=== PATIENT | female | born 1945 | race Caucasian/White ===

== ENCOUNTER 2017-12-17 22:58 | Emergency (ER) | payer MEDICARE, SELFPAY ==
[2017-12-17 23:02] VITALS: BP 147/66; PULSE 61; RESP 18; TEMP 37.4; O2SAT 93; BMI 24.7
--- NOTE | 2017-12-18 00:50 | DI.RAD.S_ITS ---
PROCEDURE: XR TOE RT MIN 2V INDICATIONS: pain swelling TECHNIQUE: 3 views of the right toe(s) acquired. COMPARISON: None. FINDINGS: Bones: No fractures or dislocations. No suspicious bony lesions. Soft tissues: No suspicious soft tissue densities. There is second toe swelling. IMPRESSION: No fracture identified. If patient's pain/symptoms do not improve consider followup radiographs in 10 days to assess for occult fracture Dictated by: Brodie Zee M.D. on 12/18/2017 at 7:14 Approved by: Brodie Zee M.D. on 12/18/2017 at 7:16
--- NOTE | 2017-12-18 00:50 | DI.RAD.S_ITS ---
PROCEDURE: XR RIBS LT MIN 3V W CXR1V INDICATIONS: pain fall TECHNIQUE: 2 views of the left ribs were acquired, along with a single view chest. COMPARISON: None. FINDINGS: Surgical changes and devices: Sternotomy wires Bones and chest wall: There are multiple left rib fractures although some of these demonstrate callus formation suggesting chronic age. No suspicious bony lesions. Overlying soft tissues appear unremarkable. Lungs and pleura: No pleural effusions or pneumothorax. Lungs appear clear. Mediastinum: Mediastinal contours appear normal. Heart size is normal. IMPRESSION: Multiple left rib fractures (left rib 10-12) although some of these demonstrate possible subacute or chronic appearance although cannot exclude acute 12th rib fracture. Therefore recommend clinical correlation to point tenderness. Dictated by: Brodie Zee M.D. on 12/18/2017 at 7:11 Approved by: Brodie Zee M.D. on 12/18/2017 at 7:14
[2017-12-18] MEDS: HYDROCODONE/ACET 5/325 TABLET 1 TAB PO (01:01)
[2017-12-18] MEDS: CYCLOBENZAPRINE 5 MG TABLET PO (01:02)
--- NOTE | 2017-12-18 01:32 | ED.BACK ---
HPI - Back Pain/Injury General Chief Complaint: Back Pain/Injury Stated Complaint: BACK IS SPASMING HORRIBLY Time Seen by Provider: 12/18/17 00:43 Source: patient Mode of arrival: ambulatory Limitations: no limitations History of Present Illness HPI Narrative: Patient is a 72-year-old female who presents with left-sided back spasm pain right foot pain and left hand pain. She fell about a week ago she has been having back spasms ever since and hurts. She was actually seen evaluated at [facility] yesterday she is having quite a severe headache after the fall as well and she is on Coumadin. The did not give her any medications. She took her 's Shoshoni prior to arrival which she said only helped some. She definitely has spasms in her back that carrier round she has no numbness or tingling no chest pain. Her right toe is also hurting. MD Complaint: fall Related Data Home Medications Medication Instructions Recorded Confirmed atenolol 75 mg PO QPM #0 08/24/16 fluoxetine 20 mg PO QDAY #0 08/24/16 gabapentin 100 mg PO QPM #0 08/24/16 isosorbide mononitrate 20 mg PO QDAY #0 08/24/16 warfarin [Coumadin] 2.5 mg PO QDAY #0 08/24/16 [HAIR,SKIN,NAILS] 1 cap PO QDAY #0 01/23/17 [MEGARED KRILL OIL] 500 mg PO QDAY #0 01/23/17 [PROBIOTIC 10] PO QPM #0 01/23/17 atorvastatin [Lipitor] 20 mg PO HS #0 01/23/17 cholecalciferol (vitamin D3) 2,000 unit PO QDAY #0 01/23/17 [Vitamin D3] cyanocobalamin (vitamin B-12) 1,000 mcg PO QDAY #0 01/23/17 losartan 100 mg PO QPM #0 01/23/17 omeprazole 20 mg PO EVERY OTHER DAY #0 01/23/17 sennosides [senna] 8.6 mg PO QPM #0 01/23/17 Previous Rx's Medication Instructions Recorded cephalexin [Keflex] 500 mg PO TID #21 cap 01/23/17 prednisone 40 mg PO Q DAY 5 Days #0 tab 01/23/17 cyclobenzaprine 5 mg PO TID PRN #10 tab 12/18/17 hydrocodone-acetaminophen 1 tab PO Q6H PRN #10 tab 12/18/17 Allergies Allergy/AdvReac Type Severity Reaction Status Date / Time nitrofurantoin Allergy Intermediate rash, Verified 12/17/17 23:08 [From MACRODANTIN] itching lisinopril [LISINOPRIL] AdvReac Intermediate cough Verified 12/17/17 23:08 Review of Systems Review of Systems All systems reviewed & are unremarkable except as noted in HPI and below Constitutional Denies chills, Denies fever(s), Denies lethargy and Denies weakness Cardiovascular Denies chest pain, Denies irregular heart rhythm, Denies lightheadedness, Denies palpitations, Denies dyspnea, Denies dyspnea on exertion and Denies orthopnea Respiratory Denies cough, Denies dyspnea, Denies dyspnea on exertion and Denies wheezing Gastrointestinal Gastrointestinal: Denies abdominal pain, Denies change in bowel habits, Denies diarrhea, Denies nausea and Denies vomiting Musculoskeletal Reports as per HPI, Reports back pain, Denies muscle weakness, Denies numbness and Denies tingling Integumentary/Breasts Denies pruritus, Denies erythema, Denies rash and Denies wounds Neurologic Denies numbness, Denies tingling and Denies weakness Endocrine Denies palpitations Allergic/Immunologic Denies wheezing PFSH Medical History Atrial fibrillation (Acute) Fibromyalgia (Acute) Multiple sclerosis (Acute) Social History Smoking Status: Never smoker Exam Initial Vital Signs Initial Vital Signs: Vital Signs Temperature 99.4 F 12/17/17 23:02 Pulse Rate 61 12/17/17 23:02 Respiratory Rate 18 12/17/17 23:02 Blood Pressure 147/66 H 12/17/17 23:02 Pulse Oximetry 93 12/17/17 23:02 GENERAL: Alert elderly female in no acute distress HEENT: Head atraumatic,EOMI, pupils reactive, face symmetric CARDIOVASCULAR: Regular rate and rhythm without murmurs, rubs or gallops. RESPIRATORY: Breath sounds equal bilaterally, no wheezes rales or rhonchi. Left rib slightly tender to touch but paradoxical movement no sign of trauma ABDOMEN: Soft, nontender. Normoactive bowel sounds all 4 quadrants. No guarding or rebound. EXTREMITIES: Normal range of motion, no clubbing or edema. Neurovascularly intact BACK: No vertebral tenderness no step-offs she is tender all left thoracic area NEUROLOGICAL: Alert and oriented x4.Normal gait and speech. Cranial nerves II through XII grossly intact. SKIN: Right 2nd toe is slightly erythematous no significant streaking no gross pus Course Orders Ordered: ED Orders 12/18/17 00:50 XR ribs LT min 3V w CXR1V Stat XR toe RT min 2V Stat Discontinued Medications Hydrocodone Bitart/Acetaminophen (Shoshoni 5/325) 1 tab PO NOW ONE Stop: 12/18/17 00:51 Last Admin: 12/18/17 01:01 Dose: 1 tab Cyclobenzaprine HCl (Flexeril) 5 mg PO NOW ONE Stop: 12/18/17 00:51 Last Admin: 12/18/17 01:02 Dose: 5 mg Vital Signs - 8 hr 12/17/17 23:02 12/18/17 02:25 Temperature 99.4 F 98.6 F Pulse Rate 61 58 L Respiratory Rate 18 17 Blood Pressure 147/66 H 146/51 H Pulse Oximetry 93 94 MDM - Back Pain/Injury Imaging Data Rib x-ray:: Attestation: I personally reviewed and interpreted this imaging study as follows: My impression: Possible 12th rib fracture no significant displacement no pneumothorax Right toe x-ray: Attestation: I personally reviewed and interpreted this imaging study as follows: My impression: No fracture ECG Data Attestation: I personally reviewed and interpreted this ECG as follows: Prior ECG tracings: not available for review Interpretation: Normal sinus rhythm rate [address] changes normal intervals MDM Narrative Medical decision making narrative: Patient pain is much better after Shoshoni and Flexeril. Pain is likely from her rib fracture. Foot and wrist seem to be sprained at this time. possible infection of the toe however his monitor closely. I discussed all findings with the patient and spouse, Education has been performed regarding treatment plan, diagnosis, warning signs and symptoms and all concerns have been addressed. Verbally agree with and understood all of the above. Discharge Plan Departure Patient Disposition: Home Clinical Impression: Left rib fracture Discharge Date/Time: 12/18/17 02:27 Interventions: ED Discharge Assessment Last Done: 12/18/17 02:25 Instructions: DI for Rib Fracture Activity Restrictions/Additional Instructions: *You have been diagnosed with left rib fracture *What to do: Take 4-6 weeks to heal, increase activity as tolerated, recommend physical therapy as needed, heating pad *Continue to take medications as directed Flexeril take only if needed for muscle spasm Shoshoni 1 tablet every 6 hr if needed for severe pain *Follow up with your primary care provider in 2-3 days *Return to ER if you should have increasing pain, shortness of breath, worsening redness or swelling on foot or any new, worsening or concerning symptoms Prescriptions: New hydrocodone-acetaminophen 5-325 mg tablet 1 tab PO Q6H PRN (Reason: pain) Qty: 10 RF: 0 cyclobenzaprine 5 mg tablet 5 mg PO TID PRN (Reason: muscle spasm) Qty: 10 RF: 0 No Action atenolol 25 MG tablet 75 mg PO QPM Qty: 0 RF: 0 fluoxetine 40 MG capsule 20 mg PO QDAY Qty: 0 RF: 0 warfarin [Coumadin] 2.5 MG tablet 2.5 mg PO QDAY Qty: 0 RF: 0 isosorbide mononitrate 20 MG tablet 20 mg PO QDAY Qty: 0 RF: 0 gabapentin 100 MG capsule 100 mg PO QPM Qty: 0 RF: 0 atorvastatin [Lipitor] 20 MG tablet 20 mg PO HS Qty: 0 RF: 0 omeprazole 20 MG capsule,delayed release(DR/EC) 20 mg PO EVERY OTHER DAY Qty: 0 RF: 0 losartan 100 MG tablet 100 mg PO QPM Qty: 0 RF: 0 [HAIR,SKIN,NAILS] 1 cap PO QDAY Qty: 0 RF: 0 [MEGARED KRILL OIL] 500 mg PO QDAY Qty: 0 RF: 0 cyanocobalamin (vitamin B-12) 1,000 MCG tablet extended release 1,000 mcg PO QDAY Qty: 0 RF: 0 cholecalciferol (vitamin D3) [Vitamin D3] 2,000 UNIT capsule 2,000 unit PO QDAY Qty: 0 RF: 0 sennosides [senna] 8.6 MG tablet 8.6 mg PO QPM Qty: 0 RF: 0 [PROBIOTIC 10] PO QPM Qty: 0 RF: 0 cephalexin [Keflex] 500 MG capsule 500 mg PO TID Qty: 21 RF: 0 prednisone 20 MG tablet 40 mg PO Q DAY 5 Days Qty: 0 RF: 0
[2017-12-18 02:25] VITALS: BP 146/51; PULSE 58; RESP 17; TEMP 37; O2SAT 94
== END 2017-12-18 02:27 | disposition home or self-care (01) ==
PROVIDERS: Emergency Provider Emergency Medicine; PCP Family Medicine
DX: S22.32XA Fracture of one rib, left side, initial encounter for closed fracture (principal); W19.XXXA Unspecified fall, initial encounter; Z79.01 Long term (current) use of anticoagulants; Z86.79 Personal history of other diseases of the circulatory system
CPT/HCPCS: 71101; 73660; 93005; 99282; 99284

== ENCOUNTER → 2020-07-06 12:51 | Outpatient (CLI) | payer MEDICARE, OTHER, SELFPAY ==
--- NOTE | 2020-07-06 | DI.MRI.S_ITS ---
PROCEDURE: MR THORACIC SPINE WO/W CON INDICATIONS: Multiple sclerosis TECHNIQUE: Noncontrast sagittal T1 spin echo and T2 fast spin echo, sagittal STIR, axial T1 and T2 fast spin echo through the thoracic spine. After the administration of contrast, axial and sagittal T1 spin echo with fat saturation through the thoracic spine. COMPARISON: [facility], MR, MR HEAD/BRAIN WO/W CON, 07/06/2020, 13:30. [facility], MR, MR LUMBAR SPINE WO/W CON, 07/06/2020, 13:30. [facility], MR, MR CERVICAL SPINE WO/W CON, 07/06/2020, 13:30. FINDINGS: Image quality: Motion is present on multiple sequences, limiting areas of fine detail evaluation.. Alignment and curvature: There is normal bony alignment. Marrow: Marrow is of normal overall signal. No acute vertebral body compression fractures. Spinal cord: Visualized spinal cord is of normal signal and size, without abnormal enhancement. Paraspinous soft tissues: No paravertebral masses or abnormal enhancement. Miscellaneous: Central canal and foramina appear widely patent at all scanned levels. Multilevel disc desiccation is present. Minimal disc bulges present at T5-6, T8-9 and T11-12. IMPRESSION: 1. Minimal multilevel degenerative changes as above. Dictated by: Sharron Butterfield M.D. on 07/06/2020 at 16:39 Approved by: Sharron Butterfield M.D. on 07/06/2020 at 16:41
--- NOTE | 2020-07-06 | DI.MRI.S_ITS ---
PROCEDURE: MR HEAD/BRAIN WO/W CON INDICATIONS: Multiple sclerosis TECHNIQUE: Noncontrast sagittal and axial FLAIR, axial and coronal T2 fast spin echo, axial VIBE, axial gradient echo, axial diffusion and ADC through the brain. After the administration of contrast, axial and coronal VIBE with fat saturation through the brain. COMPARISON: [facility], MR, MR CERVICAL SPINE WO/W CON, 07/06/2020, 13:30. FINDINGS: Image quality: Excellent. The ventricular system and cortical sulci demonstrate atrophy, consistent for the patient's stated age. There are extensive areas of increased T2/FLAIR signal intensity within the periventricular and subcortical white matter. No distinct corpus callosum lesions are identified. There is no acute intra-or extra axial fluid collection. No acute hemorrhage, mass lesion or midline shift. Brainstem is unremarkable. 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 There are no areas of restricted diffusion. Globes are symmetrical. Sinuses are aerated. Osseous structures are intact. IMPRESSION: 1. No acute intracranial process. 2. Moderate to severe atrophy and chronic microvascular ischemic changes. 3. Extensive hyperintensities within the periventricular and subcortical white matter without corpus callosum lesions. Appearance can be consistent with chronic microvascular ischemia and/or presence of demyelinating disease. Dictated by: Sharron Butterfield M.D. on 07/06/2020 at 15:52 Approved by: Sharron Butterfield M.D. on 07/06/2020 at 15:56
--- NOTE | 2020-07-06 | DI.MRI.S_ITS ---
PROCEDURE: MR LUMBAR SPINE WO/W CON INDICATIONS: Multiple sclerosis TECHNIQUE: Noncontrast sagittal T1 spin echo and T2 fast spin echo, sagittal STIR, axial T1 and T2 fast spin echo through the lumbar spine. In cases with scoliosis, additional coronal T2 fast spin echo may be performed. After the administration of contrast, sagittal and axial T1 spin echo with fat saturation through the lumbar spine. COMPARISON: None. FINDINGS: Image quality: Motion is present on multiple sequences, limiting areas of fine detail evaluation. Alignment and curvature: There is normal bony alignment. Marrow: Marrow is of normal overall signal. No acute vertebral body compression fractures. No suspicious marrow enhancement. Spinal cord: Conus medullaris terminates at the L1 level. Visualized spinal cord demonstrates normal signal, without suspicious enhancement. There is overall decreased caliber of the spinal cord. Paraspinous soft tissues: No paravertebral masses or abnormal enhancement. Discs: Multilevel [id number] disc desiccation is present. L1-L2: Mild disc bulge with mild spinal stenosis. No foraminal narrowing. Facet and ligamentum flavum hypertrophy are present. L2-L3: Mild disc bulge with severe spinal stenosis and canal compression. Minimal to mild bilateral foraminal narrowing with facet and ligamentum flavum hypertrophy. L3-L4: Mild disc bulge with moderate to severe spinal stenosis. Moderate to severe bilateral foraminal narrowing with facet and ligamentum flavum hypertrophy. L4-L5: Mild disc bulge with severe spinal stenosis and canal compression. Moderate to severe bilateral foraminal narrowing with facet and ligamentum flavum hypertrophy. L5-S1: Mild disc bulge with mild spinal stenosis. No foraminal narrowing. Facet and ligamentum flavum hypertrophy are present. IMPRESSION: 1. Significant multilevel degenerative changes. 2. Multilevel spinal stenosis secondary to disc bulge with contributing effect of congenital stenosis, as well as facet/ligamentum flavum arthropathy. It is most severe at L2-3 and L4-5. 3. Multilevel foraminal narrowing most severe at L3-4 and L4-5 secondary to facet arthropathy. Dictated by: Sharron Butterfield M.D. on 07/06/2020 at 16:35 Approved by: Sharron Butterfield M.D. on 07/06/2020 at 16:38
--- NOTE | 2020-07-06 | DI.MRI.S_ITS ---
PROCEDURE: MR CERVICAL SPINE WO/W CON INDICATIONS: Multiple sclerosis TECHNIQUE: Noncontrast sagittal T1 spin echo and T2 fast spin echo, sagittal STIR, sagittal PD fast spin echo, foraminal oblique sagittal T2 fast spin echo, axial gradient echo or T2 fast spin echo through the cervical spine. After the administration of contrast, sagittal and axial T1 spin echo with fat saturation through the cervical spine. COMPARISON: [facility], MR, MR LUMBAR SPINE WO/W CON, 07/06/2020, 13:30. [facility], MR, MR THORACIC SPINE WO/W CON, 07/06/2020, 13:30. [facility], MR, MR HEAD/BRAIN WO/W CON, 07/06/2020, 13:30. MRI cervical spine 07/25/2018 FINDINGS: Image quality: Excellent. Alignment and curvature: There is an overall appearance of cervical straightening. There is grade 1 retrolisthesis of C5 on C6, C6 on C7. Marrow: Marrow demonstrates normal overall signal. Spinal cord: Visualized spinal cord is narrowed size, without white matter lesions. No suspicious intramedullary enhancement. No cerebellar tonsillar herniation. Paraspinous soft tissues: No paravertebral masses or suspicious enhancement. Discs: Severe disc desiccation is present at C5-6 and C6-7 with mild throughout the remainder of the cervical spine. C2-C3: Minimal disc bulge without spinal stenosis. Minimal to mild left foraminal narrowing with uncovertebral hypertrophy. C3-C4: Mild disc bulge with small posterior central protrusion. Minimal to mild spinal stenosis. Moderate bilateral foraminal narrowing with uncovertebral hypertrophy. C4-C5: Mild disc bulge with mild spinal stenosis. Moderate right and moderate to severe left foraminal narrowing with uncovertebral hypertrophy. C5-C6: Mild disc bulge with severe spinal stenosis and canal compression. Severe bilateral foraminal narrowing with uncovertebral hypertrophy. C6-C7: Mild disc bulge with moderate spinal stenosis. Moderate to severe left and severe right foraminal narrowing with uncovertebral hypertrophy. C7-T1: No disc bulge or spinal stenosis. Moderate bilateral foraminal narrowing with uncovertebral hypertrophy. IMPRESSION: 1. Multilevel spinal stenosis secondary to disc bulges with contributing effect of mild congenital stenosis. 2. Multilevel moderate to severe foraminal narrowing most severe at C5-6 secondary to uncovertebral arthropathy. 3. No areas of abnormal signal within the cord are identified. 4. It is noted that overall there has been a progression of spinal stenosis most severe at C5-6 compared to prior exam. Remaining portions of the exam appear relatively stable. Dictated by: Sharron Butterfield M.D. on 07/06/2020 at 16:27 Approved by: Sharron Butterfield M.D. on 07/06/2020 at 16:32
== END ==
PROVIDERS: PCP Family Medicine; Referring Provider Psychiatry & Neurology Neurology; Visit Provider Psychiatry & Neurology Neurology
DX: G35 Multiple sclerosis (principal); M50.21 Other cervical disc displacement, high cervical region; M48.02 Spinal stenosis, cervical region; M51.26 Other intervertebral disc displacement, lumbar region; M51.27 Other intervertebral disc displacement, lumbosacral region; M47.816 Spondylosis without myelopathy or radiculopathy, lumbar region; M48.061 Spinal stenosis, lumbar region without neurogenic claudication; M48.07 Spinal stenosis, lumbosacral region
CPT/HCPCS: 70553; 72156; 72157; 72158